=== PATIENT | male | born 1995 | race Caucasian/White ===

== ENCOUNTER 2018-06-11 13:08 | Outpatient (CLI) | payer MEDICAID, SELFPAY ==
--- NOTE | 2018-06-11 13:30 | DI.RAD_ITS ---
SYMPTOMS/DIAGNOSIS: ONGOING COUGH, WORSE SINCE THANKSGIVING PA AND LATERAL CHEST: The heart is normal in size. The lungs are clear. The mediastinal structures and pleura appear intact. CONCLUSION: Normal chest.
== END 2018-06-11 13:28 ==
PROVIDERS: PCP Pediatrics; Visit Provider Registered Nurse
DX: R05 Cough (principal)
CPT/HCPCS: 71046